=== PATIENT | female | born 1990 | race Caucasian/White ===

== ENCOUNTER 2021-06-16 22:15 | Emergency (ER) | payer OTHER ==
[~2021-06-16] VITALS: Ht 162.6 cm; Wt 59.1 kg
[2021-06-16 22:32] VITALS: BP 131/88
== END 2021-06-16 23:45 | disposition left against medical advice (07) ==
LOC: EMS 22:15
DX: M25.521 Pain in right elbow (principal); Z53.21 Procedure and treatment not carried out due to patient leaving prior to being seen by health care provider
CPT/HCPCS: 99284; Z7502

== ENCOUNTER 2021-07-14 11:50 | Emergency (ER) | payer OTHER ==
[~2021-07-14] VITALS: Ht 162.6 cm; Wt 59.1 kg
[2021-07-14 12:18] VITALS: BP 117/78
== END 2021-07-14 14:00 | disposition left against medical advice (07) ==
LOC: EMS 12:06
DX: Z53.21 Procedure and treatment not carried out due to patient leaving prior to being seen by health care provider (principal)